=== PATIENT | female | born 1970 | race Caucasian/White ===

== ENCOUNTER 2018-06-22 02:34 | Emergency (ER) | payer BC ==
[~2018-06-22] VITALS: Ht 182.9 cm; Wt 71.0 kg
[~2018-06-22 02:34] MED LIST: AMOX250S6 PO; HYDR473S47 PO; TRAM50TA2 PO
[2018-06-22] MEDS ORDERED: cough suppressant PO (02:54)
[2018-06-22] MEDS ORDERED: PROMETHAZINE 25 MG/ML, 1ML ONE (02:57)
[2018-06-22] MEDS ORDERED: KETOROLAC 30 MG/1 ML ONE (02:57)
[2018-06-22] MEDS ORDERED: ONDANSETRON 2MG/ML, 2ML ONE (02:57)
[2018-06-22] MEDS ORDERED: KETOROLAC 30 MG/1 ML IVPush ONE (03:00)
[2018-06-22] MEDS ORDERED: SODIUM CHLORIDE FLUSH 10ML SYR IVF ONE (03:00)
[2018-06-22] MEDS ORDERED: PROMETHAZINE 25 MG/ML, 1ML IM ONE (03:00)
[2018-06-22] MEDS ORDERED: SODIUM CHLORIDE 0.9% 1,000ML IVBOLUS ONE (03:00)
[2018-06-22] MEDS ORDERED: ONDANSETRON 2MG/ML, 2ML IVPush ONE (03:00)
[2018-06-22] MEDS ORDERED: ALBUTEROL/IPRATROPIUM 2.5MG/0.5MG, 3 ML NPPB ONE (03:00)
[2018-06-22] MEDS ORDERED: ALBUTEROL/IPRATROPIUM 2.5MG/0.5MG, 3 ML ONE (03:01)
[2018-06-22 03:10] LABS: BASOPHILS # (AUTO) 0.01 x10^3/uL (0-0.1); BASOPHILS % (AUTO) 0 % (0-1); EOSINOPHILS % (AUTO) 0 % (1-7); LYMPHOCYTES # (AUTO) 1.02 x10^3/uL (1-3.4); LYMPHOCYTES % (AUTO) 22 % (22-44); MD NO; MEAN CORPUSCULAR HEMOGLOBIN 29.5 pg (27.0-34.8); MEAN CORPUSCULAR HGB CONC 33.6 g/dL (32.4-35.8); MEAN CORPUSCULAR VOLUME 87.8 fL (80-100); MEAN PLATELET VOLUME 7.8 fL (7.4-10.4); MONOCYTES # (AUTO) 0.44 x10^3/uL (0.2-0.8); MONOCYTES % (AUTO) 9 % (2-9); NEUTROPHILS # (AUTO) 3.26 x10^3/uL (1.8-6.8); NEUTROPHILS % (AUTO) 69 % (42-75); PLATELET COUNT 202 x10^3/uL (130-400); RED BLOOD COUNT 4.38 x10^6/uL (3.82-5.3)
[2018-06-22 03:22] LABS: ALANINE AMINOTRANSFERASE 32 U/L (12-78); ALBUMIN 3.4 g/dL (3.4-5.0); ANION GAP 8 mmol/L (5-15); CALCIUM 8.2 mg/dL (8.5-10.1); CHLORIDE 104 mmol/L (98-107); CREATININE 1.24 mg/dL (0.55-1.02)
[2018-06-22 03:24] LABS: ALKALINE PHOSPHATASE 35 U/L (45-117); BILIRUBIN,TOTAL 0.3 mg/dL (0.2-1.0); TOTAL PROTEIN 7.5 g/dL (6.4-8.2)
[2018-06-22 04:04] LABS: RAPID INFLUENZA A POSITIVE (Negative); RAPID INFLUENZA B Negative (Negative)
[2018-06-22 04:56] VITALS: BP 118/74
== END 2018-06-22 04:58 | disposition home or self-care (01) ==
LOC: ED 03:28
DX: J09.X1 Influenza due to identified novel influenza A virus with pneumonia (principal); J15.8 Pneumonia due to other specified bacteria; E86.0 Dehydration
CPT/HCPCS: 36415; 71046; 80053; 85025; 87400; 93005; 94640; 96361; 96372; 96374; 96375; 99284; J1885; J2405; J2550; J7030; J7620